=== PATIENT | female | born 1965 | race Caucasian/White ===

== ENCOUNTER 2019-03-30 10:44 | Emergency (ER) | payer BC, OTHER ==
[~2019-03-30] VITALS: Ht 157.5 cm; Wt 50.4 kg
[~2019-03-30 10:44] MED LIST: CIPR500T87 PO; ERTA1VIA IV; HYDR1TAB13 PO; LEVO500T8 PO; None at this time; ONDA4TAB10 PO; ONDA4TAB7 PO; OXYC-302 PO; OXYC1TAB7 PO; POTA20TA91 PO
[2019-03-30] MEDS ORDERED: HYDROmorphone 2 MG/ML, 1ML IM ONE ×2 (11:30→15:00)
[2019-03-30] MEDS ORDERED: ONDANSETRON ODT 4 MG PO ONE (11:30)
--- NOTE | 2019-03-30 11:35 | NUR ---
pt to room from Lobby; assumed patient care; pt reports no distress; reports pain, will manage pain per MD order.
[2019-03-30] MEDS ORDERED: HYDROmorphone 2 MG/ML, 1ML ONE ×2 (11:42→15:09)
[2019-03-30] MEDS ORDERED: ONDANSETRON ODT 4 MG ONE (11:42)
--- NOTE | 2019-03-30 11:50 | NUR ---
PT MEDICATED FOR PAIN. UA COLLECTED AND SENT TO THE LAB.
[2019-03-30 12:55] LABS: MICROSCOPIC INDICATED
[2019-03-30 12:56] LABS: CULTURE INDICATED? YES
--- NOTE | 2019-03-30 14:24 | NUR ---
CHART UP FOR MD RECHECK. PT AWARE.
--- NOTE | 2019-03-30 14:45 | NUR ---
KENDALL NICKERSON ADDED ON. PT AWARE.
--- NOTE | 2019-03-30 15:25 | NUR ---
PT REMEDICATED FOR PAIN.
[2019-03-30 15:40] LABS: CULTURE INDICATED? YES; MICROSCOPIC INDICATED
[2019-03-30 16:25] VITALS: BP 150/84
== END 2019-03-30 16:28 | disposition home or self-care (01) ==
LOC: ED 14:12
DX: N30.00 Acute cystitis without hematuria (principal)
CPT/HCPCS: 74176; 81001; 87086; 87147; 96372; 99284; J1170; Q0162